=== PATIENT | female | born 1975 | race Caucasian/White ===

== ENCOUNTER → 2021-03-17 10:01 | Outpatient (CLI) | payer OTHER, SELFPAY ==
--- NOTE | 2021-03-17 10:07 | DI.RAD.S_ITS ---
PROCEDURE: FL UPPER GI SMALL BOWEL W AIR COMPARISON: None. INDICATIONS: Other diseases of stomach and duodenum, delayed gastric emptying FINDINGS: Postsurgical changes related to spinal fixation hardware. No esophageal stricture or diverticulum is seen. There is normal esophageal mucosal appearance. Prominent size of the stomach is seen. There is normal appearance of the duodenum, and small bowel loops. There is a large amount of residual contrast material seen in the stomach throughout the examination. Contrast transits the small bowel to the colon in expected time. No specific transition point identified. IMPRESSION: Large amount of residual oral contrast material seen within the stomach during the entire examination. This raises the possibility of delayed gastric emptying, although recommend further evaluation with dedicated nuclear medicine gastric emptying study. Otherwise, negative examination Dictated by: Lebron Tate M.D. on 03/17/2021 at 12:49 Approved by: Lebron Tate M.D. on 03/17/2021 at 12:52
== END ==
PROVIDERS: PCP Physician Assistant Medical; Referring Provider Family Medicine; Visit Provider Family Medicine
DX: K31.89 Other diseases of stomach and duodenum (principal)
CPT/HCPCS: 74246; 74248